=== PATIENT | male | born 1940 | race Caucasian/White ===

== ENCOUNTER 2018-04-03 10:42 | Emergency (ER) | payer OTHER ==
[~2018-04-03] VITALS: Ht 172.7 cm; Wt 83.5 kg
[~2018-04-03 10:42] MED LIST: ASPIR 8181 MG PO; ASPIRIN PO; CARVEDILOL6.25 MG PO; CHOLESTYRAMINE P4 GM PO; COREG6.25 MG PO; CYCLOBENZAPRINE10 MG PO; FLAGYL500 MG PO; FLEXERIL PO; HYDROCHLOROTHIA25 M2 PO; HYDROCODONE; HYDROCODONE BT1 EAC1 PO; HYDROCODONE-AP1 EAC6 PO; HYDROCODONE/APAP PO; LEVAQUIN 500 M500 M2 PO; NORCO 5-325 TA1 EACH PO; OTHER MISCELL; SEE ATTACHED SHEET.; SIMVASTATIN20 MG PO; TRAMADOL 50 MG50 MG PO; UNKNOWN PAIN MED; ZOCOR40 MG PO
[2018-04-03 11:18] LABS: ABSOLUTE BASOPHILS 0.1 thou/uL (0.0-0.2); ABSOLUTE EOSINOPHILS 0.2 thou/uL (0.0-0.7); ABSOLUTE LYMPHOCYTES 1.1 thou/uL (0.8-5.3); ABSOLUTE MONOCYTES 0.5 thou/uL (0.0-1.2); ABSOLUTE NEUTROPHILS 5.9 thou/uL (1.6-8.1); BASOPHILS 0.7 %; EOSINOPHILS 2.5 %; HEMATOCRIT 46.2 % (42.0-52.0); HEMOGLOBIN 15.9 gm/dL (14.0-18.0); LYMPHOCYTES 13.9 %; MCHC 34.5 g/dL (28.0-37.0); MCV 92.6 fL (80.0-100.0); MONOCYTES 6.1 %; NUCLEATED RBCS 0 /100WBC; PLATELET COUNT* 250 thou/uL (150-400); POLYS 76.8 %; RBC 4.99 mil/uL (4.50-6.00); RDW-CV 13.7 % (10.5-14.5); WBC 7.7 thou/uL (4.0-11.0)
[2018-04-03 11:32] LABS: ALBUMIN 3.5 g/dL (3.4-5.0); ALKALINE PHOSPHATASE 96 U/L (46-116); BUN 24 mg/dL (7-18); CALCIUM 8.9 mg/dL (8.5-10.1); CHLORIDE 104 mmol/L (98-107); CREATININE 1.1 mg/dL (0.6-1.3); GLUCOSE 125 mg/dL (70-99); POTASSIUM 4.2 mmol/L (3.5-5.1); SGOT 29 U/L (15-37); SGPT 42 U/L (30-65); SODIUM 141 mmol/L (136-145); TOTAL BILIRUBIN 0.5 mg/dL (<0.1-1.0); TOTAL PROTEIN 7.3 g/dL (6.4-8.2); TROPONIN-I LEVEL <0.06 ng/mL (<0.06)
[2018-04-03 11:37] LABS: ANION GAP 7 mmol/L (7-16); CO2 30 mmol/L (21-32)
[2018-04-03 11:50] VITALS: BP 157/90
[2018-04-03] MEDS ORDERED: CYCLOBENZAPRINE5 MG PO (11:53)
[2018-04-03] MEDS ORDERED: NORCO 5-325 TA1 EAC1 PO (11:53)
--- NOTE | 2018-04-04 18:40 | EKG ---
[place] [address] ELECTROCARDIOGRAM REPORT Name: CHRIS VÁSQUEZ Room: [facility]#: [id number] Admission: 04/03/18 Attend Phys: Discharge: 04/03/18 Date of : 40 Report #: [id number] THIS REPORT FOR: //name// [facility] ED Test Date: 2018-04-03 Test Time: 11:02:53 Pat Name: CHRIS VÁSQUEZ Department: Room: Gender: M Pattern Filer: : 1940 Requested By: Dexter Melchor Order Number: [id number] MD: Jt Cancino Measurements Intervals [place] Rate: 64 P: 53 [place]: 169 QRS: 29 QRSD: 88 T: 62 QT: 403 QTc: 416 Interpretive Statements Sinus rhythm Abnormal R-wave progression, early transition Baseline wander in lead(s) III,aVL,aVF,V3,V4 Compared to ECG 03/27/2017 11:00:53 No significant changes Electronically Signed On 04-04-2018 18:40:36 CDT by Jt Cancino [email or web address] <ELECTRONICALLY SIGNED> By: Jt Cancino MD, [facility] 04/04/18 1840 1102 1102 Jt Cancino MD, [facility] /EPI
== END 2018-04-03 11:57 | disposition home or self-care (01) ==
LOC: M.ERS 10:42
PROVIDERS: Nurse Practitioner Family
DX: S29.012A Strain of muscle and tendon of back wall of thorax, initial encounter (principal); I25.10 Atherosclerotic heart disease of native coronary artery without angina pectoris; Z90.49 Acquired absence of other specified parts of digestive tract; Z95.5 Presence of coronary angioplasty implant and graft; X58.XXXA Exposure to other specified factors, initial encounter; Y93.89 Activity, other specified; Y92.89 Other specified places as the place of occurrence of the external cause; Y99.8 Other external cause status

== ENCOUNTER → 2018-12-30 | Outpatient (CLI) | payer OTHER ==
[~2018-12-30] MED LIST changes: +CYCLOBENZAPRINE5 MG PO; +NORCO 5-325 TA1 EAC1 PO
== END ==
LOC: M.RAD 15:35
DX: M25.522 Pain in left elbow (principal)